=== PATIENT | male | born 2005 | race Two or more races ===

== ENCOUNTER 2025-01-10 12:13 | Emergency (ER) | payer SELFPAY ==
[~2025-01-10] VITALS: Ht 175.3 cm; Wt 58.5 kg
--- NOTE | 2025-01-10 13:14 | DVH ---
CLINICAL INDICATION: Trauma TECHNIQUE: 4 radiographic views of the left hand were obtained. Comparison: None FINDINGS/IMPRESSION: There is no evidence of acute fracture or dislocation. The visualized joint space is well maintained. The alignment is anatomical. There is no radiopaque foreign body.
[2025-01-10 13:41] VITALS: BP 146/92; PULSE 81; RESP 18; TEMP 98.6; O2SAT 97
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
[2025-01-10] MEDS ORDERED: CEPH500C PO (13:49)
[2025-01-10] MEDS ORDERED: NAPR-746 PO (13:49)
[2025-01-10] MEDS: cefTRIAXone SOD 1,000 MG VL IM ONE (13:56)
== END 2025-01-10 14:07 | disposition home or self-care (01) ==
LOC: ER 12:13 → EDBD 12:13 → ER 14:06
DX: S61.432A Puncture wound without foreign body of left hand, initial encounter (principal); X58.XXXA Exposure to other specified factors, initial encounter; Y93.89 Activity, other specified; Y92.89 Other specified places as the place of occurrence of the external cause; Y99.8 Other external cause status
CPT/HCPCS: 73130; 96372; 99283; J0696